=== PATIENT | male | born 1945 | race Caucasian/White ===

== ENCOUNTER → 2025-06-06 10:36 | Outpatient (CLI) | payer MEDICARE, OTHER, SELFPAY ==
--- NOTE | 2025-06-06 10:39 | DI.US.S_ITS ---
PROCEDURE: US CAROTID DOPPLER BI
--- NOTE | 2025-06-06 10:40 | DI.MRI.S_ITS ---
PROCEDURE: MR HEAD/BRAIN WO CON
== END ==
PROVIDERS: PCP Family Medicine; Referring Provider Family Medicine; Visit Provider Family Medicine
DX: R41.3 Other amnesia (principal); E78.5 Hyperlipidemia, unspecified
CPT/HCPCS: 70551; 93880

== ENCOUNTER → 2025-06-15 15:27 | Outpatient (CLI) | payer MEDICARE, OTHER, SELFPAY ==
--- NOTE | 2025-06-15 15:29 | DI.US.S_ITS ---
PROCEDURE: US THYROID INDICATIONS: nodule TECHNIQUE: Real-time scanning was performed of the thyroid gland, with image documentation. COMPARISON: None. FINDINGS: Thyroid: Right lobe measures 4.6 x 2.2 x 2.1 cm. Left lobe measures 3.7 x 2.2 x 1.1 cm. Isthmus is 0.5 cm thick. Echotexture is heterogeneous. Nodule number: 1 Location: Left mid to inferior Size: 2.0 x 1.2 x 0.8 Composition: Solid Echogenicity: Hypoechoic Shape: wider than tall. Margins: Smooth Echogenic foci: None Total points: 4 ACR TI-RADS category: 4 Nodule number: 2 Location: Right inferior Size: 2.4 x 1.9 x 2.6 cm. Composition: Solid Echogenicity: Hypoechoic Shape: wider than tall. Margins: Smooth Echogenic foci: Non Total points: 4 ACR TI-RADS category: 4 Nodule number: 3 IMPRESSION: TIRADS 4 left thyroid nodules (1 and 2) as above. Recommend FNA. ACR TI-RADS definitions and recommendations: TI-RADS 1 (benign): 0 points. FNA not needed. TI-RADS 2 (not suspicious): 2 points. FNA not needed. TI-RADS 3: 3 points. * FNA if 2.5 cm or larger, follow up if 1.5 cm or larger (at 1, 3, and 5 years). TI-RADS 4: 4-6 points. * FNA if 1.5 cm or larger, follow up if 1 cm or larger (at 1, 2, 3, and 5 years). TI-RADS 5: 7 points or more. * FNA if 1 cm or larger, follow up if 0.5 cm or larger (every year for 5 years). Dictated by: Rosalva Vee M.D. on 06/17/2025 at 13:52 Approved by: Rosalva Vee M.D. on 06/17/2025 at 14:02
== END ==
LOC: US 15:28
PROVIDERS: PCP Family Medicine; Referring Provider Family Medicine; Visit Provider Family Medicine
DX: E04.2 Nontoxic multinodular goiter (principal)
CPT/HCPCS: 76536